=== PATIENT | male | born 1965 | race African-American/Black ===

== ENCOUNTER → 2021-03-06 | Day surgery (SDC) | payer OTHER ==
[~2021-03-06] VITALS: Ht 167.6 cm; Wt 81.6 kg
[~2021-03-06] MED LIST: LISINOPRIL-HCT1 EACH PO; PRAVACHOL20 MG PO
[2021-03-06 08:27] LABS: HCT 49.4 % (42.0-52.0); HGB 16.8 g/dl (13.2-18.0); MCH 29.9 pg (25.0-31.0); MCV 87.9 fL (78.0-100.0); MPV 11.9 fL (6.0-9.5); RBC 5.62 M/uL (4.70-6.00); RDW 14.1 % (11.5-14.0); WBC 5.3 K/uL (4.0-10.5)
[2021-03-06 08:54] LABS: ALBUMIN 3.8 g/dL (3.4-5.0); BILIRUBIN - TOTAL 0.7 mg/dL (0.2-1.0); BUN/CREAT RATIO (CALC) 11.2 RATIO; CREATININE 1.16 mg/dL (0.67-1.17); GLOBULIN (CALCULATION) 3.6 g/dL; POTASSIUM 3.5 mmol/L (3.5-5.1); TOTAL PROTEIN 7.4 g/dL (6.4-8.2)
== END | disposition home or self-care (01) ==
LOC: FAS 02-26 08:00
PROVIDERS: Surgery
DX: Z12.11 Encounter for screening for malignant neoplasm of colon (principal); D12.0 Benign neoplasm of cecum; D12.3 Benign neoplasm of transverse colon; D12.6 Benign neoplasm of colon, unspecified; I10 Essential (primary) hypertension; E78.00 Pure hypercholesterolemia, unspecified; Z86.010 Personal history of colon polyps; Z79.899 Other long term (current) drug therapy
CPT/HCPCS: 36415; 80053; J1610; J2704; J7120